=== PATIENT | female | born 1930 | race Caucasian/White ===

== ENCOUNTER 2017-02-05 20:31 | Emergency (ER) | payer OTHER, MEDICAID ==
[~2017-02-05] VITALS: Ht 152.4 cm; Wt 78.5 kg
[~2017-02-05 20:31] MED LIST: ACET500C PO; BENA40TA7 PO; CLON0.2T PO; DOCU-94 PO; DOCU240C8 OR; DOXA4TAB40 PO; GABA-339 PO; GLIP-115 PO; HYDR25TA4 PO; MET50T PO; PRAV20TA3 PO; SIME180C20 PO; SITA100T7 PO; VALS80TA42 PO; ZINC50TA2 PO; [UNRECOGNIZED DRUG - CODE] OR
[2017-02-05 21:27] VITALS: BP 153/70
[2017-02-05 22:22] LABS: Basophils # (auto) 0 uL; Basophils % (auto) 0.2 % (0.0-2.0); CONDITION AutoValidated; Eosinophils # (auto) 0 uL; Eosinophils % (auto) 0.1 % (0.0-7.0); Hematocrit 36.5 % (36.0-46.0); Hemoglobin 12.3 g/dL (12.2-16.2); Lymphocytes # (auto) 1.1 uL; Lymphocytes % (auto) 11.8 % (10.0-50.0); Mean Corpuscular Hemoglobin 32.2 pg (28.0-32.0); Mean Corpuscular Hgb Conc. 33.8 g/dL (32.0-36.0); Mean Corpuscular Volume 95.2 fL (80.0-100.0); Mean Platelet Volume 8.8 fL (7.4-10.4); Monocytes % (auto) 10.7 % (0.0-12.0); Neutrophils # (auto) 7.2 uL; Neutrophils % (auto) 77.2 % (37.0-80.0); Platelet Count (auto) 220 10^3/uL (140-450); White Blood Cell 9.3 10^3/uL (4.4-10.8)
[2017-02-05 22:37] LABS: Urine Bilirubin Negative (Negative); Urine Blood Negative /uL (Negative); Urine Color Yellow (Yellow); Urine Glucose Normal (Normal); Urine Hyaline Cast MANY /lpf (0 - 2); Urine Ketone Negative (Negative); Urine Mucus FEW (None Seen); Urine Nitrite Negative (Negative); Urine RBC <1 /hpf (0 - 4); Urine Squamous Epithelial Cell FEW /hpf (<5)
[2017-02-05 22:49] LABS: INR 0.98 (0.9-1.15); Partial Thromboplastin Time 28.4 sec (22.64-33.71); Prothrombin Time 10.7 sec (9.37-12.3)
[2017-02-05 22:53] LABS: Albumin 3.6 g/dL (3.4-5.0); Amylase 510 U/L (25-115); Anion Gap 12 (5-15); Aspartate Aminotransferase 146 U/L (15-37); BUN/Creatinine Ratio 15.6; Blood Urea Nitrogen 22 mg/dL (7-18); Calcium 8.8 mg/dL (8.5-10.1); Carbon Dioxide 21 mmol/L (21-32); Chloride 105 mmol/L (98-107); GFR African American 45 mL/min; GFR Non-African American 38 mL/min; Glucose 186 mg/dL (74-106); Magnesium 1.6 mg/dL (1.6-2.6); Potassium 4.3 mmol/L (3.5-5.1); Sodium 138 mmol/L (136-145)
[2017-02-05 22:57] LABS: Alkaline Phosphatase 97 U/L (45-117); Bilirubin, Total 0.6 mg/dL (0.2-1.0); Total Protein 7.6 g/dL (6.4-8.2)
== END 2017-02-06 02:57 | disposition left against medical advice (07) ==
LOC: ER 20:39
DX: R10.13 Epigastric pain (principal); Z53.21 Procedure and treatment not carried out due to patient leaving prior to being seen by health care provider
CPT/HCPCS: 36415; 71020; 74176; 80053; 81001; 82150; 83690; 83735; 84484; 85025; 85379; 85610; 85730; 93005

== ENCOUNTER 2017-06-22 15:05 | Emergency (ER) | payer OTHER, MEDICAID ==
[~2017-06-22] VITALS: Ht 152.4 cm; Wt 79.4 kg
[2017-06-22 15:26] VITALS: BP 173/70
== END 2017-06-22 16:15 | disposition home or self-care (01) ==
LOC: ER 15:07
DX: R21 Rash and other nonspecific skin eruption (principal); R42 Dizziness and giddiness; E11.9 Type 2 diabetes mellitus without complications; I10 Essential (primary) hypertension; Z82.49 Family history of ischemic heart disease and other diseases of the circulatory system; Z88.8 Allergy status to other drugs, medicaments and biological substances

== ENCOUNTER 2017-07-09 13:02 | Emergency (ER) | payer OTHER, MEDICAID ==
[~2017-07-09] VITALS: Ht 152.4 cm; Wt 79.4 kg
[2017-07-09 13:49] LABS: Basophils # (auto) 0 uL; Basophils % (auto) 0.5 % (0.0-2.0); Eosinophils # (auto) 0.1 uL; Eosinophils % (auto) 1.3 % (0.0-7.0); Hematocrit 37.1 % (36.0-46.0); Hemoglobin 12.8 g/dL (12.2-16.2); Lymphocytes # (auto) 1.6 uL; Lymphocytes % (auto) 24.5 % (10.0-50.0); Mean Corpuscular Hemoglobin 33.2 pg (28.0-32.0); Mean Corpuscular Hgb Conc. 34.6 g/dL (32.0-36.0); Mean Platelet Volume 8.2 fL (6.9-10.8); Monocytes # (auto) 0.7 uL; Monocytes % (auto) 9.8 % (0.0-12.0); Neutrophils # (auto) 4.3 uL; Neutrophils % (auto) 63.9 % (37.0-80.0); Platelet Count (auto) 210 10^3/uL (140-450); Red Cell Distribution Width 12.7 % (11.8-14.3); White Blood Cell 6.7 10^3/uL (4.4-10.8)
[2017-07-09 14:06] LABS: Albumin 3.8 g/dL (3.4-5.0); Alkaline Phosphatase 66 U/L (45-117); Anion Gap 10 (5-15); Aspartate Aminotransferase 14 U/L (15-37); BUN/Creatinine Ratio 16.3; Bilirubin, Total 0.4 mg/dL (0.2-1.0); Blood Urea Nitrogen 16 mg/dL (7-18); Calcium 8.9 mg/dL (8.5-10.1); Carbon Dioxide 24 mmol/L (21-32); Chloride 89 mmol/L (98-107); GFR African American 69 mL/min; GFR Non-African American 57 mL/min; Glucose 223 mg/dL (74-106); Potassium 4.2 mmol/L (3.5-5.1); Sodium 123 mmol/L (136-145); Total Protein 7.6 g/dL (6.4-8.2)
[2017-07-09 14:49] VITALS: BP 182/80
[2017-07-09] MEDS ORDERED: KETOROLAC TROMETH 30 MG/ML 1ML VIAL IV ONE (16:15)
[2017-07-09] MEDS ORDERED: METOCLOPRAMIDE HCL 5MG/ml INJ 2ml VIAL IV ONE (16:15)
[2017-07-09 16:19] LABS: Urine RBC None Seen /hpf (0 - 4)
[2017-07-09 16:31] LABS: Urine Bilirubin Negative (Negative); Urine Blood Negative /uL (Negative); Urine Color Colorless (Yellow); Urine Glucose Normal (Normal); Urine Ketone Negative (Negative); Urine Nitrite Negative (Negative); Urine Squamous Epithelial Cell FEW /hpf (<5); Urine Urobilinogen Normal (Negative); Urine pH 6.5 (5.0-8.0)
== END 2017-07-09 16:31 | disposition home or self-care (01) ==
LOC: ER 13:02
DX: I10 Essential (primary) hypertension (principal); G43.909 Migraine, unspecified, not intractable, without status migrainosus; E11.65 Type 2 diabetes mellitus with hyperglycemia; E11.40 Type 2 diabetes mellitus with diabetic neuropathy, unspecified
CPT/HCPCS: 36415; 70450; 80053; 81001; 82962; 84484; 85025; 93005

== ENCOUNTER 2017-08-18 11:08 | Inpatient (IN) | payer OTHER, MEDICAID ==
[~2017-08-18] VITALS: Ht 152.4 cm; Wt 83.5 kg
[~2017-08-18 11:08] MED LIST changes: +ASCO500T11 PO; -HYDR25TA4 PO; +NIF30XLT PO; -VALS80TA42 PO
[2017-08-18] MEDS ORDERED: ONDANSETRON HCL 4 MG/2 ML VIAL IV ONE (13:15)
[2017-08-18] MEDS ORDERED: MORPHINE SULFATE 4 MG/ML SYR/VIAL IV ONE (13:15)
[2017-08-18 14:05] LABS: Basophils # (auto) 0 uL; Basophils % (auto) 0.4 % (0.0-2.0); Eosinophils # (auto) 0.1 uL; Eosinophils % (auto) 0.7 % (0.0-7.0); Hematocrit 36.9 % (36.0-46.0); Hemoglobin 12.6 g/dL (12.2-16.2); Lymphocytes # (auto) 1.9 uL; Lymphocytes % (auto) 18.8 % (10.0-50.0); Mean Corpuscular Hemoglobin 33.1 pg (28.0-32.0); Mean Corpuscular Hgb Conc. 34.2 g/dL (32.0-36.0); Mean Corpuscular Volume 96.7 fL (80.0-100.0); Monocytes # (auto) 0.8 uL; Monocytes % (auto) 7.4 % (0.0-12.0); Neutrophils # (auto) 7.4 uL; Neutrophils % (auto) 72.7 % (37.0-80.0); Platelet Count (auto) 244 10^3/uL (140-450); Red Blood Cells 3.82 10^6/uL (4.0-5.20); Red Cell Distribution Width 12.6 % (11.8-14.3); White Blood Cell 10.2 10^3/uL (4.4-10.8)
[2017-08-18 14:25] LABS: INR 0.95 (0.9-1.15); Partial Thromboplastin Time 25.9 sec (22.64-33.71); Prothrombin Time 10.3 sec (9.37-12.3)
[2017-08-18 14:34] LABS: Albumin 3.8 g/dL (3.4-5.0); BUN/Creatinine Ratio 17.7; Bilirubin, Total 0.5 mg/dL (0.2-1.0); Calcium 9.7 mg/dL (8.5-10.1); Magnesium 2.1 mg/dL (1.6-2.6); Potassium 4.5 mmol/L (3.5-5.1); Total Protein 7.6 g/dL (6.4-8.2)
[2017-08-18] MEDS ORDERED: DEXTROSE (50%) 50ML SYRG IV PRN (17:15)
[2017-08-18] MEDS: SODIUM CHLORIDE 0.9% 1,000 ML IV SCH (17:18)
[2017-08-18] MEDS: ACCU-CHEK COMFORT CURVE STRIP VI SCH (17:53)
[2017-08-18] MEDS: InsuLIN REG 1unit/0.01ml Soln (100units/ml) SC SCH (17:53)
[2017-08-18] MEDS ORDERED: ATEN50TA PO (18:31)
[2017-08-18] MEDS ORDERED: FLUP5TAB PO (18:31)
[2017-08-18] MEDS ORDERED: ENAL2.5T PO (18:31)
[2017-08-18] MEDS ORDERED: SENN1TAB14 PO (18:31)
[2017-08-18 19:30] VITALS: BP 140/75
[2017-08-18] MEDS ORDERED: PANT40T PO (21:15)
[2017-08-18] MEDS ORDERED: METO-158 PO (21:15)
[2017-08-18] MEDS ORDERED: OYST500T48 OR (21:15)
[2017-08-18] MEDS ORDERED: LEVO112T4 PO (21:15)
[2017-08-18] MEDS ORDERED: VALS160T53 PO (21:15)
[2017-08-18] MEDS: DOXAZOSIN MESYL 2 MG TAB PO SCH (21:44)
[2017-08-18] MEDS: ATORVASTATIN 20 MG TAB PO SCH (21:44)
[2017-08-18] MEDS: METOPROLOL TARTRATE 50 MG TAB PO SCH (21:45)
[2017-08-18 22:00] VITALS: BP 137/70
[2017-08-18] MEDS ORDERED: MORPHINE SULF INJ 2 MG/ML SYRINGE 1ML IV PRN (22:30)
[2017-08-18 22:56] VITALS: BP 137/70
[2017-08-19 05:00] VITALS: BP 130/61
[2017-08-19 05:46] LABS: Basophils # (auto) 0 uL; Basophils % (auto) 0.3 % (0.0-2.0); Eosinophils # (auto) 0.1 uL; Eosinophils % (auto) 1.6 % (0.0-7.0); Hematocrit 29.8 % (36.0-46.0); Hemoglobin 10.5 g/dL (12.2-16.2); Lymphocytes # (auto) 1.9 uL; Lymphocytes % (auto) 28.9 % (10.0-50.0); Mean Corpuscular Hemoglobin 33.7 pg (28.0-32.0); Mean Corpuscular Hgb Conc. 35.1 g/dL (32.0-36.0); Monocytes # (auto) 0.9 uL; Neutrophils # (auto) 3.7 uL; Neutrophils % (auto) 55.2 % (37.0-80.0); Platelet Count (auto) 202 10^3/uL (140-450); Red Blood Cells 3.11 10^6/uL (4.0-5.20); White Blood Cell 6.7 10^3/uL (4.4-10.8)
[2017-08-19] MEDS: InsuLIN REG 1unit/0.01ml Soln (100units/ml) SC SCH ×4 (06:00→17:39)
[2017-08-19 06:07] LABS: Calcium 8.7 mg/dL (8.5-10.1); Potassium 4.4 mmol/L (3.5-5.1)
[2017-08-19] MEDS: ACCU-CHEK COMFORT CURVE STRIP VI SCH ×4 (06:08→17:39)
[2017-08-19 06:09] LABS: BUN/Creatinine Ratio 19.2
[2017-08-19] MEDS: SODIUM CHLORIDE 0.9% 1,000 ML IV SCH ×2 (06:09→20:00)
[2017-08-19] MEDS: LEVOTHYROXINE SODIUM 112 MCG TAB PO SCH (06:10)
[2017-08-19 06:12] LABS: Bilirubin, Total 0.5 mg/dL (0.2-1.0); Total Protein 6.2 g/dL (6.4-8.2)
[2017-08-19 09:00] VITALS: BP 147/69
[2017-08-19] MEDS ORDERED: MORPHINE SULFATE 4 MG/ML SYR/VIAL ONE (09:28)
[2017-08-19] MEDS: PANTOPRAZOLE 40 MG/10 ML VIAL IV SCH (09:44)
[2017-08-19] MEDS: METOPROLOL TARTRATE 50 MG TAB PO SCH ×2 (09:44→21:19)
[2017-08-19] MEDS: NIFEdipine ER 30 MG TAB PO SCH (09:45)
[2017-08-19] MEDS ORDERED: ceFAZolin 1GM/50ML 50 ML IV ONE (12:39)
[2017-08-19 13:00] VITALS: BP 154/63
[2017-08-19] MEDS ORDERED: BUPIVACAINE 0.75% INJ 10ML MPV SDV IJ ONE (13:53)
[2017-08-19] MEDS ORDERED: fentaNYL CITRATE 100 MCG/2 ML VL ONE (14:03)
[2017-08-19] MEDS ORDERED: TETRACAINE 1% INJ 2 ML VIAL IJ ONE (14:03)
[2017-08-19] MEDS ORDERED: MIDAZOLAM HCL 1MG/1ML-2 ML VIAL ONE ×2 (14:03→14:28)
[2017-08-19] MEDS ORDERED: DEXAMETHASONE SOD PHOS 10MG/1ML VIAL INJ ONE (14:14)
[2017-08-19] MEDS ORDERED: PROPOFOL 10 MG/ML 20 ML IV ONE (14:14)
[2017-08-19] MEDS ORDERED: ceFAZolin 1GM VL ONE (14:22)
[2017-08-19] MEDS ORDERED: PHENYLEPHRINE HCL 10 MG/ML VL ONE (14:34)
[2017-08-19] MEDS ORDERED: MORPHINE SULF INJ 2 MG/ML SYRINGE 1ML IV PRN (16:00)
[2017-08-19] MEDS ORDERED: ONDANSETRON HCL 4 MG/2 ML VIAL IV ONE (16:00)
[2017-08-19] MEDS ORDERED: hydrALAZINE HCL 20 MG/ML VL IV PRN (16:00)
[2017-08-19] MEDS ORDERED: ePHEDrine SULFATE 50 MG/ML AMP IV PRN (16:00)
[2017-08-19 17:00] VITALS: BP 145/60
[2017-08-19] MEDS: cefTRIAXone 1GM/10ml IVPUSH 10 ML IV SCH (17:38)
[2017-08-19] MEDS: DOXAZOSIN MESYL 2 MG TAB PO SCH (21:18)
[2017-08-19] MEDS: HYDROcodone-ACET 5/325MG TAB PO PRN (21:18)
[2017-08-19] MEDS: ATORVASTATIN 20 MG TAB PO SCH (21:18)
[2017-08-19 22:00] VITALS: BP 155/86
[2017-08-20] MEDS: ACCU-CHEK COMFORT CURVE STRIP VI SCH ×5 (00:07→23:35)
[2017-08-20 05:00] VITALS: BP 127/55
[2017-08-20] MEDS: cefTRIAXone 1GM/10ml IVPUSH 10 ML IV SCH ×2 (05:16→16:52)
[2017-08-20] MEDS: InsuLIN REG 1unit/0.01ml Soln (100units/ml) SC SCH ×5 (05:49→23:35)
[2017-08-20] MEDS: LEVOTHYROXINE SODIUM 112 MCG TAB PO SCH (05:56)
[2017-08-20 08:30] VITALS: BP 153/64
[2017-08-20] MEDS: METOPROLOL TARTRATE 50 MG TAB PO SCH ×2 (09:37→22:24)
[2017-08-20] MEDS: SODIUM CHLORIDE 0.9% 1,000 ML IV SCH ×2 (09:37→22:25)
[2017-08-20] MEDS: PANTOPRAZOLE 40 MG/10 ML VIAL IV SCH (09:37)
[2017-08-20] MEDS: NIFEdipine ER 30 MG TAB PO SCH (09:38)
[2017-08-20 12:30] VITALS: BP 150/64
[2017-08-20 16:57] VITALS: BP 127/59
[2017-08-20 21:26] VITALS: BP 139/59
[2017-08-20] MEDS: DOXAZOSIN MESYL 2 MG TAB PO SCH (22:24)
[2017-08-20] MEDS: ATORVASTATIN 20 MG TAB PO SCH (22:24)
[2017-08-21 04:16] VITALS: BP 120/51
[2017-08-21] MEDS: cefTRIAXone 1GM/10ml IVPUSH 10 ML IV SCH ×2 (05:18→16:29)
[2017-08-21] MEDS: ACCU-CHEK COMFORT CURVE STRIP VI SCH ×3 (06:24→16:28)
[2017-08-21] MEDS: InsuLIN REG 1unit/0.01ml Soln (100units/ml) SC SCH ×3 (06:24→16:27)
[2017-08-21] MEDS: LEVOTHYROXINE SODIUM 112 MCG TAB PO SCH (06:30)
[2017-08-21 09:00] VITALS: BP 119/57
[2017-08-21] MEDS: PANTOPRAZOLE 40 MG/10 ML VIAL IV SCH (09:19)
[2017-08-21] MEDS: METOPROLOL TARTRATE 50 MG TAB PO SCH ×2 (09:20→22:47)
[2017-08-21] MEDS: NIFEdipine ER 30 MG TAB PO SCH (09:20)
[2017-08-21] MEDS: SODIUM CHLORIDE 0.9% 1,000 ML IV SCH (11:08)
[2017-08-21 13:00] VITALS: BP 126/59
[2017-08-21 17:00] VITALS: BP 142/63
[2017-08-21 22:00] VITALS: BP 127/57
[2017-08-21] MEDS: ATORVASTATIN 20 MG TAB PO SCH (22:48)
[2017-08-21] MEDS: DOXAZOSIN MESYL 2 MG TAB PO SCH (22:48)
[2017-08-22] VITALS (7 sets, daily range): BP systolic 122–136; BP diastolic 55–63
[2017-08-22] MEDS: InsuLIN REG 1unit/0.01ml Soln (100units/ml) SC SCH ×4 (00:37→17:16)
[2017-08-22] MEDS: SODIUM CHLORIDE 0.9% 1,000 ML IV SCH ×2 (01:25→14:29)
[2017-08-22] MEDS: cefTRIAXone 1GM/10ml IVPUSH 10 ML IV SCH ×2 (04:49→16:25)
[2017-08-22] MEDS: ACCU-CHEK COMFORT CURVE STRIP VI SCH ×4 (06:00→17:07)
[2017-08-22] MEDS: LEVOTHYROXINE SODIUM 112 MCG TAB PO SCH (06:44)
[2017-08-22] MEDS: PANTOPRAZOLE 40 MG/10 ML VIAL IV SCH (09:46)
[2017-08-22] MEDS: NIFEdipine ER 30 MG TAB PO SCH (09:46)
[2017-08-22] MEDS: METOPROLOL TARTRATE 50 MG TAB PO SCH ×2 (09:47→22:09)
[2017-08-22] MEDS ORDERED: TEMAZEPAM 15 MG CAP PO PRN (21:30)
[2017-08-22] MEDS: DOXAZOSIN MESYL 2 MG TAB PO SCH (22:08)
[2017-08-22] MEDS: ATORVASTATIN 20 MG TAB PO SCH (22:08)
[2017-08-23] MEDS: ACCU-CHEK COMFORT CURVE STRIP VI SCH ×5 (00:07→23:50)
[2017-08-23] MEDS: InsuLIN REG 1unit/0.01ml Soln (100units/ml) SC SCH ×5 (00:08→23:51)
[2017-08-23] MEDS: SODIUM CHLORIDE 0.9% 1,000 ML IV SCH ×2 (04:10→16:43)
[2017-08-23 05:13] VITALS: BP 135/76
[2017-08-23] MEDS: cefTRIAXone 1GM/10ml IVPUSH 10 ML IV SCH ×2 (05:36→16:42)
[2017-08-23] MEDS: LEVOTHYROXINE SODIUM 112 MCG TAB PO SCH (06:39)
[2017-08-23 08:00] VITALS: BP 135/76
[2017-08-23 09:00] VITALS: BP 132/62
[2017-08-23] MEDS: PANTOPRAZOLE 40 MG/10 ML VIAL IV SCH (09:24)
[2017-08-23] MEDS: METOPROLOL TARTRATE 50 MG TAB PO SCH ×2 (09:25→21:05)
[2017-08-23] MEDS: NIFEdipine ER 30 MG TAB PO SCH (09:26)
[2017-08-23 13:00] VITALS: BP 127/92
[2017-08-23 16:15] VITALS: BP 135/54
[2017-08-23] MEDS: HYDROcodone-ACET 5/325MG TAB PO PRN (20:08)
[2017-08-23] MEDS: ATORVASTATIN 20 MG TAB PO SCH (21:05)
[2017-08-23] MEDS: DOXAZOSIN MESYL 2 MG TAB PO SCH (21:06)
[2017-08-23 23:14] VITALS: BP 126/59
[2017-08-24] MEDS: cefTRIAXone 1GM/10ml IVPUSH 10 ML IV SCH (04:46)
[2017-08-24 05:38] VITALS: BP 132/60
[2017-08-24] MEDS: ACCU-CHEK COMFORT CURVE STRIP VI SCH ×2 (06:02→11:45)
[2017-08-24] MEDS: InsuLIN REG 1unit/0.01ml Soln (100units/ml) SC SCH ×2 (06:02→11:45)
[2017-08-24] MEDS: SODIUM CHLORIDE 0.9% 1,000 ML IV SCH (06:13)
[2017-08-24] MEDS: LEVOTHYROXINE SODIUM 112 MCG TAB PO SCH (06:14)
[2017-08-24 09:00] VITALS: BP 143/65
[2017-08-24] MEDS: PANTOPRAZOLE 40 MG/10 ML VIAL IV SCH (10:38)
[2017-08-24] MEDS: METOPROLOL TARTRATE 50 MG TAB PO SCH (10:39)
[2017-08-24] MEDS: NIFEdipine ER 30 MG TAB PO SCH (10:39)
[2017-08-24 13:00] VITALS: BP 119/63
[2017-08-24 17:18] VITALS: BP 139/67
== END 2017-08-24 17:50 | DRG 494 ==
LOC: EDUNIT# 11:08 → ER 11:08 → OVERFLOW 11:09 → WEST WING 19:28
PROVIDERS: ADMIT Family Medicine; ATTEND Family Medicine
PROC: 0QSK04Z Reposition Left Fibula with Internal Fixation Device, Open Approach (ICD-10-PCS; 2017-08-19)
PROC: 0QSH04Z Reposition Left Tibia with Internal Fixation Device, Open Approach (ICD-10-PCS; principal; 2017-08-19 14:11)
DX: S82.842A Displaced bimalleolar fracture of left lower leg, initial encounter for closed fracture (principal); E11.9 Type 2 diabetes mellitus without complications; E03.9 Hypothyroidism, unspecified; W01.0XXA Fall on same level from slipping, tripping and stumbling without subsequent striking against object, initial encounter; I10 Essential (primary) hypertension; E78.00 Pure hypercholesterolemia, unspecified; Z79.899 Other long term (current) drug therapy; Y92.009 Unspecified place in unspecified non-institutional (private) residence as the place of occurrence of the external cause; Z79.84 Long term (current) use of oral hypoglycemic drugs; Z82.49 Family history of ischemic heart disease and other diseases of the circulatory system; Z83.3 Family history of diabetes mellitus; Z88.8 Allergy status to other drugs, medicaments and biological substances
CPT/HCPCS: 36415; 71010; 73600; 73610; 76001; 80053; 82962; 83036; 83735; 85025; 85610; 85730; 87081; 93005; 94761; 96361; 96374; 96375; 97163; C1769; C9113; J0690; J1100; J1815; J2250; J2405; J2704; J3490

== ENCOUNTER 2017-09-16 12:54 | Inpatient (IN) | payer OTHER, MEDICAID ==
[~2017-09-16] VITALS: Ht 162.6 cm; Wt 76.0 kg
[~2017-09-16 12:54] MED LIST changes: -BENA40TA7 PO; -CLON0.2T PO; -DOCU240C8 OR; -GABA-339 PO; +LEVO112T4 PO; -MET50T PO; +METO-158 PO; +OYST500T48 OR; +PANT40T PO; -SIME180C20 PO; -SITA100T7 PO; +VALS160T53 PO; -ZINC50TA2 PO
[2017-09-16 14:33] LABS: Basophils # (auto) 0.1 uL; Eosinophils # (auto) 0.2 uL; Eosinophils % (auto) 1.9 % (0.0-7.0); Hematocrit 36.5 % (36.0-46.0); Hemoglobin 12.4 g/dL (12.2-16.2); Lymphocytes # (auto) 1.8 uL; Lymphocytes % (auto) 22.8 % (10.0-50.0); Mean Corpuscular Hemoglobin 31.6 pg (28.0-32.0); Mean Corpuscular Hgb Conc. 33.9 g/dL (32.0-36.0); Monocytes # (auto) 0.9 uL; Monocytes % (auto) 11.2 % (0.0-12.0); Neutrophils % (auto) 63.1 % (37.0-80.0); Platelet Count (auto) 212 10^3/uL (140-450); Red Blood Cells 3.93 10^6/uL (4.0-5.20); Red Cell Distribution Width 13.6 % (11.8-14.3)
[2017-09-16 14:48] LABS: INR 0.95 (0.9-1.15); Partial Thromboplastin Time 20.2 sec (22.64-33.71); Prothrombin Time 10.4 sec (9.37-12.3)
[2017-09-16 14:53] LABS: Alanine Aminotransferase 19 U/L (13-56); Albumin 3.4 g/dL (3.4-5.0); Alkaline Phosphatase 109 U/L (45-117); Anion Gap 11 (5-15); Aspartate Aminotransferase 15 U/L (15-37); BUN/Creatinine Ratio 13.9; Bilirubin, Total 0.7 mg/dL (0.2-1.0); Blood Urea Nitrogen 16 mg/dL (7-18); Calcium 9.2 mg/dL (8.5-10.1); Carbon Dioxide 24 mmol/L (21-32); Chloride 94 mmol/L (98-107); GFR African American 57 mL/min; GFR Non-African American 47 mL/min; Glucose 315 mg/dL (74-106); Potassium 5.1 mmol/L (3.5-5.1); Sodium 129 mmol/L (136-145); Total Protein 7.1 g/dL (6.4-8.2)
[2017-09-16 17:10] LABS: Urine Bacteria FEW /hpf (None Seen); Urine Blood Negative /uL (Negative); Urine Specific Gravity 1.006 (1.001-1.035); Urine WBC 2 /hpf (0 - 5)
[2017-09-16] MEDS ORDERED: CHOL20007 PO (17:42)
[2017-09-16] MEDS ORDERED: VALSARTAN 80 MG TAB PO ONE (18:30)
[2017-09-16] MEDS ORDERED: NITROGLYCERIN 0.4 MG SL TAB SL PRN (18:30)
[2017-09-16] MEDS ORDERED: ONDANSETRON HCL 4 MG/2 ML VIAL IV PRN (18:30)
[2017-09-16] MEDS ORDERED: DEXTROSE (50%) 50ML SYRG IV ONE (18:30)
[2017-09-16] MEDS ORDERED: MORPHINE SULF INJ 2 MG/ML SYRINGE 1ML IV PRN (18:30)
[2017-09-16] MEDS ORDERED: PRAVASTATIN SODIUM 20 MG TAB PO ONE (18:46)
[2017-09-16] MEDS ORDERED: PANTOPRAZOLE 40 MG TAB PO ONE (19:00)
[2017-09-16] MEDS: SODIUM CHLORIDE 0.9% 1,000 ML IV SCH ×2 (19:01→22:21)
[2017-09-16 19:29] LABS: Cholesterol 115 mg/dL (< 200); HDL Cholesterol 42 mg/dL (40-59); LDL Cholesterol 68 mg/dL (< 100); Triglycerides 104 mg/dL (< 150)
[2017-09-16 19:40] VITALS: BP 125/58
[2017-09-16 22:00] VITALS: BP 125/58
[2017-09-16] MEDS ORDERED: ACCU-CHEK COMFORT CURVE STRIP VI ONE (22:00)
[2017-09-16] MEDS ORDERED: InsuLIN REG 1unit/0.01ml Soln (100units/ml) SC ONE (22:00)
[2017-09-16] MEDS: ACETAMINOPHEN 325 MG TAB PO PRN (23:01)
[2017-09-17] MEDS ORDERED: DEXTROSE (50%) 50ML SYRG IV PRN (01:15)
[2017-09-17 05:00] VITALS: BP 118/67
[2017-09-17] MEDS: ACCU-CHEK COMFORT CURVE STRIP VI SCH ×3 (06:04→17:40)
[2017-09-17] MEDS: InsuLIN REG 1unit/0.01ml Soln (100units/ml) SC SCH ×3 (06:04→17:41)
[2017-09-17] MEDS: LEVOTHYROXINE SODIUM 112 MCG TAB PO SCH (06:35)
[2017-09-17 06:42] LABS: Basophils # (auto) 0.1 uL; Eosinophils # (auto) 0.2 uL; Eosinophils % (auto) 2.9 % (0.0-7.0); Hematocrit 35.4 % (36.0-46.0); Hemoglobin 12.1 g/dL (12.2-16.2); Lymphocytes # (auto) 2.3 uL; Lymphocytes % (auto) 31.6 % (10.0-50.0); Mean Corpuscular Hemoglobin 31.8 pg (28.0-32.0); Mean Corpuscular Hgb Conc. 34.3 g/dL (32.0-36.0); Mean Corpuscular Volume 92.9 fL (80.0-100.0); Monocytes # (auto) 0.9 uL; Monocytes % (auto) 11.8 % (0.0-12.0); Neutrophils # (auto) 3.8 uL; Neutrophils % (auto) 52.7 % (37.0-80.0); Platelet Count (auto) 200 10^3/uL (140-450); Red Blood Cells 3.81 10^6/uL (4.0-5.20); Red Cell Distribution Width 13.6 % (11.8-14.3); White Blood Cell 7.2 10^3/uL (4.4-10.8)
[2017-09-17 07:01] LABS: BUN/Creatinine Ratio 16.5; Calcium 8.7 mg/dL (8.5-10.1); Magnesium 2.1 mg/dL (1.6-2.6); Phosphorus 4.1 mg/dL (2.5-4.90); Potassium 4.1 mmol/L (3.5-5.1)
[2017-09-17 08:50] VITALS: BP 145/62
[2017-09-17] MEDS ORDERED: DOCUSATE SOD 100 MG CAP PO PRN (10:00)
[2017-09-17] MEDS: NIFEdipine ER 30 MG TAB PO SCH (10:06)
[2017-09-17] MEDS: PANTOPRAZOLE 40 MG TAB PO SCH (10:06)
[2017-09-17] MEDS: glipiZIDE 5 MG TAB PO SCH (10:07)
[2017-09-17 16:57] VITALS: BP_SYST 126; BP_SYST 135; BP_DIAS 57; BP_DIAS 61
[2017-09-17] MEDS: PRAVASTATIN SODIUM 20 MG TAB PO SCH (17:41)
[2017-09-17] MEDS: SODIUM CHLORIDE 0.9% 1,000 ML IV SCH (17:44)
[2017-09-17 22:01] VITALS: BP 124/62
[2017-09-17] MEDS: ACETAMINOPHEN 325 MG TAB PO PRN (22:17)
[2017-09-18 05:00] VITALS: BP 124/56
[2017-09-18 05:20] LABS: Basophils # (auto) 0.1 uL; Basophils % (auto) 0.8 % (0.0-2.0); Eosinophils # (auto) 0.2 uL; Eosinophils % (auto) 2.6 % (0.0-7.0); Hematocrit 31.1 % (36.0-46.0); Lymphocytes # (auto) 2.9 uL; Lymphocytes % (auto) 36.3 % (10.0-50.0); Mean Corpuscular Hemoglobin 33.2 pg (28.0-32.0); Mean Corpuscular Hgb Conc. 35.5 g/dL (32.0-36.0); Mean Corpuscular Volume 93.5 fL (80.0-100.0); Monocytes # (auto) 0.9 uL; Monocytes % (auto) 11.2 % (0.0-12.0); Neutrophils % (auto) 49.1 % (37.0-80.0); Nucleated Red Blood Cells % 0.1 %; Platelet Count (auto) 224 10^3/uL (140-450); Red Blood Cells 3.32 10^6/uL (4.0-5.20); Red Cell Distribution Width 13.7 % (11.8-14.3)
[2017-09-18 05:45] LABS: BUN/Creatinine Ratio 15.8; Calcium 8.7 mg/dL (8.5-10.1); Magnesium 2.1 mg/dL (1.6-2.6); Phosphorus 3.2 mg/dL (2.5-4.90); Potassium 4.1 mmol/L (3.5-5.1)
[2017-09-18] MEDS: ACCU-CHEK COMFORT CURVE STRIP VI SCH ×4 (06:09→17:46)
[2017-09-18] MEDS: InsuLIN REG 1unit/0.01ml Soln (100units/ml) SC SCH ×4 (06:09→17:46)
[2017-09-18] MEDS: LEVOTHYROXINE SODIUM 112 MCG TAB PO SCH (06:33)
[2017-09-18 07:27] VITALS: BP 136/60
[2017-09-18 08:00] VITALS: BP 145/62
[2017-09-18] MEDS: SODIUM CHLORIDE 0.9% 1,000 ML IV SCH ×2 (10:34→20:49)
[2017-09-18] MEDS: glipiZIDE 5 MG TAB PO SCH (10:35)
[2017-09-18] MEDS: PANTOPRAZOLE 40 MG TAB PO SCH (10:35)
[2017-09-18] MEDS: NIFEdipine ER 30 MG TAB PO SCH (10:35)
[2017-09-18 11:31] VITALS: BP 128/62
[2017-09-18 16:33] VITALS: BP 134/70
[2017-09-18] MEDS: PRAVASTATIN SODIUM 20 MG TAB PO SCH (18:51)
[2017-09-18] MEDS: ACETAMINOPHEN 325 MG TAB PO PRN (21:10)
[2017-09-18 22:00] VITALS: BP 158/79
[2017-09-19] MEDS: InsuLIN REG 1unit/0.01ml Soln (100units/ml) SC SCH ×3 (00:11→12:02)
[2017-09-19] MEDS: ACCU-CHEK COMFORT CURVE STRIP VI SCH ×3 (00:11→12:02)
[2017-09-19 05:00] VITALS: BP 138/66
[2017-09-19 06:31] LABS: Basophils # (auto) 0.1 uL; Basophils % (auto) 0.7 % (0.0-2.0); Eosinophils # (auto) 0.2 uL; Eosinophils % (auto) 2.7 % (0.0-7.0); Hematocrit 34.5 % (36.0-46.0); Hemoglobin 11.7 g/dL (12.2-16.2); Lymphocytes # (auto) 2.5 uL; Lymphocytes % (auto) 33.9 % (10.0-50.0); Mean Corpuscular Hgb Conc. 33.9 g/dL (32.0-36.0); Mean Corpuscular Volume 94.4 fL (80.0-100.0); Monocytes # (auto) 0.9 uL; Neutrophils # (auto) 3.7 uL; Neutrophils % (auto) 50.7 % (37.0-80.0); Nucleated Red Blood Cells % 0.1 %; Platelet Count (auto) 235 10^3/uL (140-450); Red Blood Cells 3.65 10^6/uL (4.0-5.20); Red Cell Distribution Width 14.1 % (11.8-14.3); White Blood Cell 7.3 10^3/uL (4.4-10.8)
[2017-09-19] MEDS: LEVOTHYROXINE SODIUM 112 MCG TAB PO SCH (07:00)
[2017-09-19 07:02] LABS: BUN/Creatinine Ratio 16.7; Calcium 8.9 mg/dL (8.5-10.1); Magnesium 2.2 mg/dL (1.6-2.6); Phosphorus 3.3 mg/dL (2.5-4.90); Potassium 4.6 mmol/L (3.5-5.1)
[2017-09-19 08:40] VITALS: BP 150/56
[2017-09-19] MEDS: SODIUM CHLORIDE 0.9% 1,000 ML IV SCH (08:51)
[2017-09-19] MEDS: NIFEdipine ER 30 MG TAB PO SCH (08:52)
[2017-09-19] MEDS: glipiZIDE 5 MG TAB PO SCH (08:52)
[2017-09-19] MEDS: PANTOPRAZOLE 40 MG TAB PO SCH (08:52)
[2017-09-19 12:55] VITALS: BP 132/74
[2017-09-19 15:55] VITALS: BP 132/74
[2017-09-19 16:53] VITALS: BP 150/76
== END 2017-09-19 17:40 | disposition home health service (06) | DRG 683 ==
LOC: ER 12:54 → EDBD 12:54 → TELE 15:55 → TELE-WESTW 20:05
PROVIDERS: ADMIT Nurse Practitioner Acute Care; ATTEND Internal Medicine
DX: N17.0 Acute kidney failure with tubular necrosis (principal); E87.1 Hypo-osmolality and hyponatremia; E11.65 Type 2 diabetes mellitus with hyperglycemia; E86.0 Dehydration; E03.9 Hypothyroidism, unspecified; E78.5 Hyperlipidemia, unspecified; I10 Essential (primary) hypertension; R55 Syncope and collapse; I67.2 Cerebral atherosclerosis; M71.20 Synovial cyst of popliteal space [Baker], unspecified knee; Z82.49 Family history of ischemic heart disease and other diseases of the circulatory system; Z83.3 Family history of diabetes mellitus; Z87.81 Personal history of (healed) traumatic fracture; Z79.899 Other long term (current) drug therapy
CPT/HCPCS: 36415; 70450; 71045; 80048; 80053; 80061; 81001; 82962; 83735; 83880; 84100; 84484; 85025; 85610; 85730; 87081; 93005; 93306; 93886; 93970; 97163; 97530; J1815

== ENCOUNTER 2018-01-23 11:39 | Inpatient (IN) | payer OTHER, MEDICAID ==
[~2018-01-23] VITALS: Ht 154.9 cm; Wt 77.4 kg
[~2018-01-23 11:39] MED LIST changes: +CHOL20007 PO
[2018-01-23 12:55] LABS: Alanine Aminotransferase 23 U/L (13-56); Alkaline Phosphatase 74 U/L (45-117); Anion Gap 13 (5-15); Aspartate Aminotransferase 18 U/L (15-37); Bilirubin, Total 0.4 mg/dL (0.2-1.0); Blood Urea Nitrogen 38 mg/dL (7-18); Carbon Dioxide 24 mmol/L (21-32); Chloride 96 mmol/L (98-107); GFR African American 42 mL/min; GFR Non-African American 34 mL/min; Glucose 252 mg/dL (74-106); Magnesium 2.1 mg/dL (1.6-2.6); Potassium 4.2 mmol/L (3.5-5.1); Sodium 133 mmol/L (136-145); Total Protein 7.7 g/dL (6.4-8.2)
[2018-01-23 13:05] LABS: INR 1.13 (0.9-1.15); Partial Thromboplastin Time 24.1 sec (23.78-33.04)
[2018-01-23 13:40] LABS: Basophils # (auto) 0 uL; Basophils % (auto) 0.4 % (0.0-2.0); Eosinophils # (auto) 0.1 uL; Eosinophils % (auto) 1.3 % (0.0-7.0); Hematocrit 39.8 % (36.0-46.0); Hemoglobin 13.4 g/dL (12.2-16.2); Lymphocytes # (auto) 1.5 uL; Lymphocytes % (auto) 20.3 % (10.0-50.0); Mean Corpuscular Hemoglobin 32.2 pg (28.0-32.0); Mean Corpuscular Hgb Conc. 33.6 g/dL (32.0-36.0); Monocytes # (auto) 0.5 uL; Monocytes % (auto) 7.5 % (0.0-12.0); Neutrophils % (auto) 70.5 % (37.0-80.0); Platelet Count (auto) 234 10^3/uL (140-450); Red Blood Cells 4.15 10^6/uL (4.0-5.20); Red Cell Distribution Width 13.5 % (11.8-14.3); White Blood Cell 7.1 10^3/uL (4.4-10.8)
[2018-01-23] MEDS ORDERED: DOCUSATE SOD 100 MG CAP PO PRN (17:45)
[2018-01-23] MEDS ORDERED: NITROGLYCERIN 0.4 MG SL TAB SL PRN (17:45)
[2018-01-23] MEDS ORDERED: DEXTROSE (50%) 50ML SYRG IV PRN (17:45)
[2018-01-23] MEDS ORDERED: HYDROcodone-ACET 5/325MG TAB PO PRN (17:45)
[2018-01-23] MEDS ORDERED: MORPHINE SULFATE 8mg/ml INJ SDV IV PRN ×2 (17:45)
[2018-01-23] MEDS ORDERED: ONDANSETRON HCL 4 MG/2 ML VIAL IV PRN (17:45)
[2018-01-23 20:40] VITALS: BP 181/71
[2018-01-23] MEDS: ACCU-CHEK COMFORT CURVE STRIP VI SCH (22:00)
[2018-01-23] MEDS: InsuLIN REG 1unit/0.01ml Soln (100units/ml) SC SCH (22:00)
[2018-01-23] MEDS: METOPROLOL TARTRATE 25 MG TAB PO SCH (22:36)
[2018-01-23] MEDS: DOXAZOSIN MESYL 2 MG TAB PO SCH (22:37)
[2018-01-23] MEDS: CALCIUM CARB 500 MG CHEW TAB PO SCH (22:38)
[2018-01-23] MEDS: PRAVASTATIN SODIUM 20 MG TAB PO SCH (22:38)
[2018-01-23] MEDS: FAMOTIDINE 20 MG TAB PO SCH (22:41)
[2018-01-23] MEDS: SODIUM CHLOR 0.9% PF (SALINE LOCK) 10ML VIAL/SYR IV SCH (22:41)
[2018-01-23] MEDS: ACETAMINOPHEN 325 MG TAB PO PRN (22:48)
[2018-01-23] MEDS: TEMAZEPAM 15 MG CAP PO PRN (22:51)
[2018-01-24] VITALS (9 sets, daily range): BP systolic 130–158; BP diastolic 53–68
[2018-01-24 06:28] LABS: Basophils # (auto) 0 uL; Basophils % (auto) 0.6 % (0.0-2.0); Eosinophils # (auto) 0.1 uL; Eosinophils % (auto) 2.3 % (0.0-7.0); Hematocrit 36.9 % (36.0-46.0); Hemoglobin 12.6 g/dL (12.2-16.2); Lymphocytes # (auto) 2.4 uL; Lymphocytes % (auto) 37.6 % (10.0-50.0); Mean Corpuscular Hemoglobin 32.2 pg (28.0-32.0); Mean Corpuscular Hgb Conc. 34.1 g/dL (32.0-36.0); Mean Corpuscular Volume 94.5 fL (80.0-100.0); Monocytes # (auto) 0.8 uL; Monocytes % (auto) 11.6 % (0.0-12.0); Neutrophils # (auto) 3.1 uL; Neutrophils % (auto) 47.9 % (37.0-80.0); Nucleated Red Blood Cells % 0.1 %; Platelet Count (auto) 219 10^3/uL (140-450); Red Blood Cells 3.91 10^6/uL (4.0-5.20); White Blood Cell 6.5 10^3/uL (4.4-10.8)
[2018-01-24] MEDS: SODIUM CHLOR 0.9% PF (SALINE LOCK) 10ML VIAL/SYR IV SCH ×3 (06:41→22:04)
[2018-01-24] MEDS: glipiZIDE 5 MG TAB PO SCH (06:41)
[2018-01-24 06:42] LABS: Albumin 3.4 g/dL (3.4-5.0); Calcium 9.4 mg/dL (8.5-10.1); Potassium 3.8 mmol/L (3.5-5.1)
[2018-01-24] MEDS: InsuLIN REG 1unit/0.01ml Soln (100units/ml) SC SCH ×4 (06:42→22:30)
[2018-01-24] MEDS: ACCU-CHEK COMFORT CURVE STRIP VI SCH ×4 (06:42→22:29)
[2018-01-24] MEDS: LEVOTHYROXINE SODIUM 112 MCG TAB PO SCH (06:42)
[2018-01-24 06:45] LABS: Bilirubin, Total 0.5 mg/dL (0.2-1.0)
[2018-01-24] MEDS: METOPROLOL TARTRATE 25 MG TAB PO SCH ×2 (08:06→22:00)
[2018-01-24] MEDS: CALCIUM CARB 500 MG CHEW TAB PO SCH ×2 (08:06→22:01)
[2018-01-24] MEDS: VALSARTAN 80 MG TAB PO SCH (08:06)
[2018-01-24] MEDS: MULTIPLE VITAMIN TAB PO SCH (08:07)
[2018-01-24] MEDS: NIFEdipine ER 30 MG TAB PO SCH (08:07)
[2018-01-24] MEDS: ENOXAPARIN SOD 30 MG/0.3 ML SYRINGE SC SCH (08:08)
[2018-01-24] MEDS: ASCORBIC ACID 500 MG TAB PO SCH (08:08)
[2018-01-24] MEDS: PANTOPRAZOLE 40 MG TAB PO SCH (08:08)
[2018-01-24] MEDS: FAMOTIDINE 20 MG TAB PO SCH (08:08)
[2018-01-24] MEDS: CHOLECALCIFEROL (VITD3) 1,000 UNIT TAB PO SCH (08:08)
[2018-01-24] MEDS ORDERED: FUROSEMIDE 20 MG TAB PO SCH (10:00)
[2018-01-24] MEDS ORDERED: HCTZ 25 MG TAB PO SCH (10:00)
[2018-01-24] MEDS: TEMAZEPAM 15 MG CAP PO PRN (22:00)
[2018-01-24] MEDS: ACETAMINOPHEN 325 MG TAB PO PRN (22:01)
[2018-01-24] MEDS: DOXAZOSIN MESYL 2 MG TAB PO SCH (22:04)
[2018-01-24] MEDS: PRAVASTATIN SODIUM 20 MG TAB PO SCH (22:08)
[2018-01-25 05:14] VITALS: BP 124/61
[2018-01-25] MEDS: SODIUM CHLOR 0.9% PF (SALINE LOCK) 10ML VIAL/SYR IV SCH ×2 (05:37→14:00)
[2018-01-25] MEDS: LEVOTHYROXINE SODIUM 112 MCG TAB PO SCH (06:44)
[2018-01-25] MEDS: glipiZIDE 5 MG TAB PO SCH (06:49)
[2018-01-25] MEDS: InsuLIN REG 1unit/0.01ml Soln (100units/ml) SC SCH ×3 (06:49→17:00)
[2018-01-25] MEDS: ACCU-CHEK COMFORT CURVE STRIP VI SCH ×3 (06:49→17:00)
[2018-01-25 07:45] LABS: Calcium 9.5 mg/dL (8.5-10.1); Potassium 4.3 mmol/L (3.5-5.1)
[2018-01-25 07:47] LABS: BUN/Creatinine Ratio 22.7
[2018-01-25 07:55] VITALS: BP 124/61
[2018-01-25 09:00] VITALS: BP 117/55
[2018-01-25 09:34] LABS: Basophils # (auto) 0 uL; Basophils % (auto) 0.6 % (0.0-2.0); Eosinophils # (auto) 0.1 uL; Eosinophils % (auto) 2.3 % (0.0-7.0); Hematocrit 40.3 % (36.0-46.0); Hemoglobin 13.6 g/dL (12.2-16.2); Lymphocytes # (auto) 2.5 uL; Lymphocytes % (auto) 38.6 % (10.0-50.0); Mean Corpuscular Hgb Conc. 33.7 g/dL (32.0-36.0); Monocytes # (auto) 0.8 uL; Monocytes % (auto) 12.8 % (0.0-12.0); Neutrophils # (auto) 2.9 uL; Neutrophils % (auto) 45.7 % (37.0-80.0); Nucleated Red Blood Cells % 0.1 %; Platelet Count (auto) 233 10^3/uL (140-450); Red Blood Cells 4.24 10^6/uL (4.0-5.20); Red Cell Distribution Width 13.6 % (11.8-14.3); White Blood Cell 6.4 10^3/uL (4.4-10.8)
[2018-01-25] MEDS: METOPROLOL TARTRATE 25 MG TAB PO SCH (10:00)
[2018-01-25] MEDS: CALCIUM CARB 500 MG CHEW TAB PO SCH (10:27)
[2018-01-25] MEDS: NIFEdipine ER 30 MG TAB PO SCH (10:27)
[2018-01-25] MEDS: ASCORBIC ACID 500 MG TAB PO SCH (10:27)
[2018-01-25] MEDS: VALSARTAN 80 MG TAB PO SCH (10:28)
[2018-01-25] MEDS: MULTIPLE VITAMIN TAB PO SCH (10:28)
[2018-01-25] MEDS: CHOLECALCIFEROL (VITD3) 1,000 UNIT TAB PO SCH (10:28)
[2018-01-25] MEDS: FAMOTIDINE 20 MG TAB PO SCH (10:28)
[2018-01-25] MEDS: PANTOPRAZOLE 40 MG TAB PO SCH (10:28)
[2018-01-25] MEDS: ENOXAPARIN SOD 30 MG/0.3 ML SYRINGE SC SCH (10:29)
[2018-01-25] MEDS ORDERED: VALS1TAB57 PO (12:12)
[2018-01-25 13:00] VITALS: BP 129/57
[2018-01-25 14:53] VITALS: BP 129/57
[2018-01-25 17:00] VITALS: BP 132/65
[2018-01-25] MEDS ORDERED: CYANOCOBALAMIN (B-12) 1000 MCG/1 ML VIAL IM ONE (17:45)
[2018-01-26] MEDS ORDERED: CYANOCOBALAMIN 500 MCG TAB PO SCH (10:00)
== END 2018-01-25 18:30 | disposition home health service (06) | DRG 683 ==
LOC: EDUNIT# 11:39 → EDBD 11:39 → ER 11:39 → TELE 11:40 → TELE-CENTR 20:10
PROVIDERS: ADMIT Internal Medicine; ATTEND Internal Medicine
DX: N17.0 Acute kidney failure with tubular necrosis (principal); E87.1 Hypo-osmolality and hyponatremia; I13.0 Hypertensive heart and chronic kidney disease with heart failure and stage 1 through stage 4 chronic kidney disease, or unspecified chronic kidney disease; I50.32 Chronic diastolic (congestive) heart failure; E11.21 Type 2 diabetes mellitus with diabetic nephropathy; R55 Syncope and collapse; N18.3 Chronic kidney disease, stage 3 (moderate); E78.5 Hyperlipidemia, unspecified; E03.9 Hypothyroidism, unspecified; K21.9 Gastro-esophageal reflux disease without esophagitis; M19.90 Unspecified osteoarthritis, unspecified site; S82.892A Other fracture of left lower leg, initial encounter for closed fracture; W18.39XA Other fall on same level, initial encounter; T50.2X5A Adverse effect of carbonic-anhydrase inhibitors, benzothiadiazides and other diuretics, initial encounter; E11.22 Type 2 diabetes mellitus with diabetic chronic kidney disease; E86.0 Dehydration; E66.9 Obesity, unspecified; G89.4 Chronic pain syndrome; Z82.49 Family history of ischemic heart disease and other diseases of the circulatory system; Z83.3 Family history of diabetes mellitus; Z86.73 Personal history of transient ischemic attack (TIA), and cerebral infarction without residual deficits; Z91.81 History of falling; Z88.8 Allergy status to other drugs, medicaments and biological substances; Y93.89 Activity, other specified; Y92.89 Other specified places as the place of occurrence of the external cause; Y99.8 Other external cause status; Z68.32 Body mass index [BMI] 32.0-32.9, adult
CPT/HCPCS: 36415; 70450; 70551; 71045; 80048; 80053; 82607; 82962; 83036; 83735; 84443; 84484; 85025; 85379; 85610; 85730; 87086; 92610; 93005; 93886; 95819; 96372; 97116; 97163; 97530; J1815

== ENCOUNTER 2020-05-22 21:50 | Emergency (ER) | payer OTHER, MEDICAID ==
[~2020-05-22] VITALS: Ht 162.6 cm; Wt 72.6 kg
[~2020-05-22 21:50] MED LIST changes: -DOXA4TAB40 PO; +DOXA4TAB5 PO; -GLIP-115 PO; +GLIP5TAB12 PO; -METO-158 PO; -NIF30XLT PO; +NIFE1TAB36 PO; -VALS160T53 PO; +VALS1TAB57 PO
[2020-05-22] MEDS ORDERED: ASPirin 81 mg TAB PO ONE (22:00)
[2020-05-22] MEDS ORDERED: MORPHINE SULFATE 4 MG/ML SYR/VIAL ONE (22:28)
[2020-05-22] MEDS ORDERED: ONDANSETRON HCL 4 MG/2 ML VIAL ONE (22:28)
[2020-05-22] MEDS ORDERED: ONDANSETRON HCL 4 MG/2 ML VIAL IV ONE (22:30)
[2020-05-22] MEDS ORDERED: CLOPIDOGREL BISULFATE 75 MG TAB PO ONE (22:30)
[2020-05-22] MEDS ORDERED: ENOXAPARIN SOD 100 MG/1 ML SYRINGE SC ONE (22:30)
[2020-05-22] MEDS ORDERED: ENOXAPARIN SOD 30 MG/0.3 ML SYRINGE IV ONE (22:30)
[2020-05-22] MEDS ORDERED: MORPHINE SULFATE 4 MG/ML SYR/VIAL IV ONE (22:30)
[2020-05-22] MEDS ORDERED: NOREPINEPHRINE 8 MG/250ML KIT 250 ML IV SCH (22:40)
[2020-05-22] MEDS ORDERED: NOREPINEPHRINE 8 MG/250ML KIT 250 ML IV ONE (22:48)
[2020-05-22 22:50] LABS: Hematocrit 38.3 % (36.0-46.0); Hemoglobin 12.6 g/dL (12.2-16.2); Mean Corpuscular Hemoglobin 32.8 pg (28.0-32.0); Mean Corpuscular Volume 99.5 fL (80.0-100.0); Platelet Count (auto) 253 10^3/uL (140-450); Red Blood Cells 3.84 10^6/uL (4.0-5.20); Red Cell Distribution Width 13.6 % (11.8-14.3); White Blood Cell 10.2 10^3/uL (4.4-10.8)
[2020-05-22 22:54] LABS: Band Neutrophils % (manual) 0; Basophils % (manual) 0 (0.0-2.0); Blast Cells 0; Metamyelocytes % 0; Myelocytes % 0; Promyelocytes % 0; Reactive Lymphocytes 0
[2020-05-22 23:07] LABS: Albumin 3.5 g/dL (3.4-5.0); Calcium 9.1 mg/dL (8.5-10.1); INR 0.97 (0.9-1.15); Magnesium 2.3 mg/dL (1.6-2.6); Partial Thromboplastin Time 27.5 sec (23.0-31.2); Potassium 4.2 mmol/L (3.5-5.1)
[2020-05-22 23:11] LABS: BUN/Creatinine Ratio 13.8; Bilirubin, Total 0.4 mg/dL (0.2-1.0); Total Protein 6.9 g/dL (6.4-8.2)
[2020-05-22 23:17] LABS: Eosinophils % (manual) 1 (0-7); Lymphocytes % (manual) 52 (10.0-50.0); Monocytes % (manual) 5 (0-12)
[2020-05-23 00:07] VITALS: BP 57/29
[2020-05-23] MEDS ORDERED: LORazepam 2MG/ML-1ML VIAL IV ONE (00:30)
[2020-05-23] MEDS ORDERED: PANTOPRAZOLE 40 MG/10 ML VIAL INJ IV SCH (10:00)
== END 2020-05-23 00:25 | disposition expired ==
LOC: EDBD 21:50 → ER 21:54
DX: I21.09 ST elevation (STEMI) myocardial infarction involving other coronary artery of anterior wall (principal); R00.1 Bradycardia, unspecified; I95.9 Hypotension, unspecified; Z66 Do not resuscitate
CPT/HCPCS: 31500; 36415; 71045; 80053; 83735; 83880; 84443; 84484; 85007; 85027; 85379; 85610; 85730; 87070; 87205; 93005; 96372; 96374; 96375; 99291; J1650; J2270; J2405; 94002